=== PATIENT | female | born 1970 | race Caucasian/White ===

== ENCOUNTER 2017-03-04 17:46 | Emergency (ER) | payer MEDICAID ==
[~2017-03-04] VITALS: Ht 172.7 cm; Wt 89.8 kg
[~2017-03-04 17:46] MED LIST: DULOXETINE HYDR30 MG PO; DULOXETINE60 MG PO
--- NOTE | 2017-03-04 18:05 | [facility] Report ---
History of Present Issue Date/Time Seen by Provider 03/04/17 180 Visit Reason Pt arrived: Presenting Problem: Location if Accident: Onset of symptoms date/time:/ or onset unknown for: Have you (or family members/close friends) recently traveled outside the [place]? If Yes, where/when: Have you had exposure to infectious disease within the past month? TB? Other? Specify: Source patient, RN notes reviewed Exam Limitations no limitations Comment Patient has been on Augmentin for 5 days for a sinus infection, but now has swelling in her right maxillary sinus. Can't open mouth hardly. No fever. ALLERGIES Coded Allergies: diphenhydramine (From BENADRYL) ("HEART RACE" 03/17/16) Home Medications Reported Medications DULOXETINE HCL (Duloxetine) 60 MG PO DAILY #30 DULOXETINE HCL (Duloxetine Hydrochloride) 30 MG PO DAILY #30 History Medical History General CAD? No Angina: No CT: No Hypertension? No Hyperlipidemia? No CHF? No DVT? No PE? No COPD? No Asthma? Yes Anemia? No GERD? No Gastric ulcers? No GI Bleed? No Hernia? No Thyroid Problems? No Hypothyroidism? No CVA? No Seizures? No Diabetes? No Renal Insuffiency? No UTI? No Stones? No GB Disease: No Nephritic Syndrome? No Asplenia? No Hepatitis? No Sickle Cell Disease? No Arthritis? No Migraines? No Cataracts? No Glaucoma? No MRSA? No HIV? No TB? No Anxiety? No Depression? No Cancer? No Immunization HX DT/Tetanus 1-4 Years Ago Surgical Hx Previous Surgery?Y HYSTERECTOMY Family History Family HX Diabetes No CAD No Hypertension No Hyperlipidemia No Cancer No TB No Social History Alcohol Alcohol: No Review of Systems All Other Systems Reviewed and Negative ENT nose pain, mouth pain. Physical Exam Vital Signs Vital Signs Date Time Temp Pulse Resp B/P Pulse O2 O2 Flow FiO2 Ox Delivery Rate 03/04 1805 98.3 95 20 163/83 96 General Appearance normal appearance, no apparent distress Ear, Nose, Throat hearing grossly normal, normal ENT inspection, left maxillary sinus swelling Respiratory Status No: respiratory distress, trachea midline, chest symmetrical. Cardiovascular normal exam, regular rate/rhythm, no peripheral edema, no gallop, no JVD, no murmur, no rub Extremities non-tender, normal range of motion, normal inspection, normal capillary refill Neurologic alert, normal exam, oriented x 3 Medical Decision Making LABS/Meds/Orders Pt receiving controlled substance in ED? No Results/Orders Current Medication Orders Sig/Natalia Start time Last Medication Dose Route Stop Time Status Admin Ceftriaxone Sodium 1 GM ONCE ONE 03/04 1830 AC IM 03/04 1831 Lidocaine HCl 0 ONCE ONE 03/04 1830 AC IM 03/04 1831 Methylprednisolone 80 MG ONCE ONE 03/04 1830 AC Sodium Succinate IM 03/04 1831 Departure Departure Time of Disposition 1823 Disposition DC Home or Self Care(routine) Clinical Impression Primary Impression: Sinusitis Qualifiers: Sinusitis location: maxillary Chronicity: acute Recurrence: non- recurrent Qualified Code: J01.00 - Acute maxillary sinusitis, unspecified Condition STABLE Referrals Lisa AMANDA,Jeremy (Family) Patient Instructions DI for Sinusitis Discharge Counseling Counseled pt/family regarding diagnosis, medications/RX, home care, follow up needs Prescriptions Current Visit Scripts Prednisone (Prednisone 20MG) 20 MG PO BID #10 TAB CEFDINIR (Cefdinir) 300 MG PO BID #20 CAP at 1826
[2017-03-04] MEDS ORDERED: CEFDINIR 300MG300 MG PO (18:25)
[2017-03-04] MEDS ORDERED: PREDNISONE 20MG20 MG PO (18:25)
[2017-03-04 18:51] VITALS: BP 163/83
== END 2017-03-04 18:51 | disposition home or self-care (01) ==
LOC: UTC 17:46
DX: J01.00 Acute maxillary sinusitis, unspecified (principal)